=== PATIENT | male | born 1970 | race Hispanic/Latino ===

== ENCOUNTER 2018-02-28 08:41 | Emergency (ER) | payer OTHER ==
[2018-02-28] MEDS: KETOROLAC TROMETHAMINE 10 MG TAB PO (10:12)
== END 2018-02-28 15:50 | disposition home or self-care (01) ==
LOC: M ED 08:41
DX: M54.16 Radiculopathy, lumbar region (principal); M51.26 Other intervertebral disc displacement, lumbar region; M48.061 Spinal stenosis, lumbar region without neurogenic claudication; M51.37 Other intervertebral disc degeneration, lumbosacral region; I10 Essential (primary) hypertension; K21.9 Gastro-esophageal reflux disease without esophagitis; Z87.891 Personal history of nicotine dependence; Z79.899 Other long term (current) drug therapy
CPT/HCPCS: 72148

== ENCOUNTER → 2022-08-29 | Outpatient (CLI) | payer OTHER ==
[~2022-08-29] MED LIST: GABA-282 PO; HYDR-3715 PO; LISINOPRIL-HCTZ; MELO15TA28; PANT40TA29
== END ==
LOC: M PLAIMG 06:40
PROVIDERS: ATTEND Nurse Practitioner Family
DX: M54.16 Radiculopathy, lumbar region (principal); M51.26 Other intervertebral disc displacement, lumbar region

== ENCOUNTER → 2022-11-08 | Outpatient (CLI) | payer OTHER | LOC: M PLAIMG 14:51 | PROVIDERS: ATTEND Nurse Practitioner Family | DX: R05.9 Cough, unspecified (principal); R09.81 Nasal congestion ==